=== PATIENT | female | born 1970 | race American Indian/Alaskan Native ===

== ENCOUNTER 2018-01-25 12:25 | Inpatient (IN) | payer MEDICAID, OTHER ==
[2018-01-25] MEDS ORDERED: LEVOPHED DRIP 4 MG/NS 250 ML 4 MG/250 ML BAG IV ONE (12:36)
[2018-01-25] MEDS ORDERED: NACL 0.9% 1000 ML IV ONE (12:59)
[2018-01-25] MEDS ORDERED: ADRENALIN 8 MG in NACL 0.9% 250ML 242 ML IV ONE (13:15)
[2018-01-25 13:36] LABS: Hematocrit 34.7 % (30.3-42.9); Hemoglobin 11.6 gm/dl (10.1-14.3); Mean Corpuscular HGB Conc 33 % (30-34); Mean Corpuscular Hemoglobin 31 pg (28-32); Mean Corpuscular Volume 94 fl (79-97); Platelet Count 173 K/mm3 (140-440); Red Blood Count 3.68 M/mm3 (3.65-5.03); Red Cell Distribution Width 14.6 % (13.2-15.2)
[2018-01-25 13:47] LABS: INR 1.44 (0.87-1.13); Partial Thromboplastin Time 31.4 Sec. (24.2-36.6)
[2018-01-25 13:51] LABS: Alanine Aminotransferase 74 units/L (7-56); Albumin 2.9 g/dL (3.9-5); BUN/Creatinine Ratio 11; Blood Urea Nitrogen 12 mg/dL (7-17); Calcium 8.3 mg/dL (8.4-10.2); Hemolysis Index 25
[2018-01-25] MEDS ORDERED: PROVENTIL IH PRN (14:18)
[2018-01-25] MEDS ORDERED: SODIUM CHLORIDE FLUSH SYRINGE 10 ML IV PRN (14:18)
--- NOTE | 2018-01-25 14:21 | Emergency Department Report ---
ED CPR HPI - General Chief Complaint: Cardiac Arrest/CPR Stated Complaint: CARDIAC Time Seen by Provider: 01/25/18 12:58 Source: patient Mode of arrival: Stretcher Limitations: No Limitations - History of Present Illness Initial Comments: The patient is a 47-year-old Female with past history of hypertension Down syndrome and severe mental developmental delay who was at home and walked to the bathroom and collapsed. There was an approximate 10 minute period where his family was waiting for her to come back from the restroom. Family and patient's caregiver states that earlier today as well as a past several days patient has not had any complaints has been within her baseline. Patient was picked up by paramedics intubated and ACLS was initiated. Patient was given 3 rounds of epinephrine 1 amp of bicarbonate for Alonso PEA MD Complaint: found unresponsive Place: home Shock Advised: No Downtime Before ACLS Arrival (mins): 10 Initial Findings in the Field: unresponsive, no pulse, PEA ROSC in the Field: No Associated Injuries: No Treatments Prior to Arrival: intubation, chest compressions, epinephrine mgs # ( 3), sodium bicarbonate (1) - Related Data Allergies Allergy/AdvReac Type Severity Reaction Status Date / Time No Known Allergies Allergy Verified 01/25/18 13:19 ED Review of Systems ROS: Stated complaint: CARDIAC Other details as noted in HPI Comment: Unobtainable due to pts medical conditions ED Past Medical Hx - Past Medical History Previous Medical History?: Yes Hx Hypertension: Yes Additional medical history: MRDD, down syndrome - Surgical History Past Surgical History?: No - Social History Smoking Status: Never Smoker ED Physical Exam - General Limitations: No Limitations General appearance: obtunded - Head Head exam: Present: atraumatic, normocephalic - Eye Eye exam: Present: other (dilated and fixed) - ENT ENT exam: Present: normal orophraynx - Neck Neck exam: Present: normal inspection - Respiratory Respiratory exam: Present: normal lung sounds bilaterally (with bagging) - Cardiovascular Cardiovascular Exam: Present: other (no spontaneous heart tones) - Extremities Exam Extremities exam: Present: normal inspection ED Course Vital Signs 01/25/18 01/25/18 13:16 14:14 Temperature 95.1 F L Pulse Rate 82 69 Blood Pressure 111/62 Blood Pressure 102/71 [Left] O2 Sat by Pulse 100 100 Oximetry - Central Line Placement Right IJ Consent Obtained: emergent situation Time Out Performed: Yes Patient Placed on Monitor/Pulse Ox: Yes Prep: mask, gown, gloves Central Line Prep: Povidone-Iodine 1% Ultrasound Used for Placement: Yes Central Line Lumen Inserted: triple Bloods Obtained for Lab: Yes Central Line Position: good blood return, all ports aspirated, flus, sutured in place with 2-0 Dressing Applied: Tegaderm Post Procedure X-Ray: tip of catheter in good p Patient Tolerated Procedure: well ED Medical Decision Making - Lab Data Result diagrams: 01/25/18 13:07 01/25/18 13:07 Lab Results 01/25/18 01/25/18 01/25/18 Range/Units 13:07 13:07 13:07 WBC 5.9 (4.5-11.0) K/mm3 RBC 3.68 (3.65-5.03) M/mm3 Hgb 11.6 (10.1-14.3) gm/dl Hct 34.7 (30.3-42.9) % MCV 94 (79-97) fl MCH 31 (28-32) pg MCHC 33 (30-34) % RDW 14.6 (13.2-15.2) % Plt Count 173 (140-440) K/mm3 PT 18.1 H (12.2-14.9) Sec. INR 1.44 H (0.87-1.13) APTT 31.4 (24.2-36.6) Sec. D-Dimer 6524.78 H (0-234) ng/mlDDU POC ABG pH (7.35-7.45) POC ABG pCO2 (35-45) POC ABG pO2 (80-105) POC ABG HCO3 POC ABG Total CO2 POC ABG O2 Sat POC ABG Base Excess FiO2 % Sodium 152 H (137-145) mmol/L Potassium 6.5 H* (3.6-5.0) mmol/L Chloride 104.7 (98-107) mmol/L Carbon Dioxide 19 L (22-30) mmol/L Anion Gap 35 mmol/L BUN 12 (7-17) mg/dL Creatinine 1.1 (0.7-1.2) mg/dL Estimated GFR > 60 ml/min BUN/Creatinine Ratio 11 % Glucose 224 H (65-100) mg/dL Calcium 8.3 L (8.4-10.2) mg/dL Total Bilirubin < 0.20 (0.1-1.2) mg/dL AST 81 H (5-40) units/L ALT 74 H (7-56) units/L Alkaline Phosphatase 55 (35-129) units/L Troponin T (0.00-0.029) ng/mL Total Protein 4.9 L (6.3-8.2) g/dL Albumin 2.9 L (3.9-5) g/dL Albumin/Globulin Ratio 1.5 % 01/25/18 01/25/18 Range/Units 13:07 13:12 WBC (4.5-11.0) K/mm3 RBC (3.65-5.03) M/mm3 Hgb (10.1-14.3) gm/dl Hct (30.3-42.9) % MCV (79-97) fl MCH (28-32) pg MCHC (30-34) % RDW (13.2-15.2) % Plt Count (140-440) K/mm3 PT (12.2-14.9) Sec. INR (0.87-1.13) APTT (24.2-36.6) Sec. D-Dimer (0-234) ng/mlDDU POC ABG pH 7.055 L (7.35-7.45) POC ABG pCO2 66.8 H (35-45) POC ABG pO2 60 L (80-105) POC ABG HCO3 18.7 POC ABG Total CO2 21 POC ABG O2 Sat 77 POC ABG Base Excess -12 FiO2 100 % Sodium (137-145) mmol/L Potassium (3.6-5.0) mmol/L Chloride (98-107) mmol/L Carbon Dioxide (22-30) mmol/L Anion Gap mmol/L BUN (7-17) mg/dL Creatinine (0.7-1.2) mg/dL Estimated GFR ml/min BUN/Creatinine Ratio % Glucose (65-100) mg/dL Calcium (8.4-10.2) mg/dL Total Bilirubin (0.1-1.2) mg/dL AST (5-40) units/L ALT (7-56) units/L Alkaline Phosphatase (35-129) units/L Troponin T < 0.010 (0.00-0.029) ng/mL Total Protein (6.3-8.2) g/dL Albumin (3.9-5) g/dL Albumin/Globulin Ratio % - EKG Data -: EKG Interpreted by Me - EKG Data 01/25/18 14:21 EKG shows a junctional rhythm rate of 87 axis is normal intervals within normal limits there is no ST segment elevations or depressions. Interpretation is 1352 - Medical Decision Making Patient is a 47-year-old [place] female with Down syndrome and developmental delay who collapsed at home. Patient according to family and caregiver wars fine prior to this event. We did have return of spontaneous circulation soon after the patient arrived here in the emergency department. Patient unfortunately did lose her pulse several times more. Please see code sheet for all meds given. Patient will be admitted to the hospitalist service under Dr. Muhammad. Patient's labs or studies were only really remarkable for elevated potassium which was treated with bicarbonate and calcium as well as elevated d-dimer. Patient not yet stable to go to CT scan at this time secondary to be on Levothroid and epinephrine drips. At the time of admission patient did have at least 30 minutes of spontaneous circulation on pressors. Central line is in place. Critical Care Time: Yes (80) Critical care attestation.: If time is entered above; I have spent that time in minutes in the direct care of this critically ill patient, excluding procedure time. ED Disposition Clinical Impression: Cardiac arrest Disposition: OP ADMIT IP TO THIS HOSP Is pt being admited?: Yes Does the pt Need Aspirin: No Condition: Serious Referrals: PRIMARY CARE, [Primary Care Provider] - 3-5 Days Time of Disposition: 14:25
[2018-01-25 14:23] LABS: Band Neutrophils # (Manual) 0.2 K/mm3; Basophils % (Manual) 0 % (0.0-1.8); Eosinophils % (Manual) 0 % (0.0-4.3); Total Cells Counted 100
[2018-01-25 14:24] LABS: Anisocytosis 1+; Macrocytosis 1+; Platelet Estimate Consistent w Auto
--- NOTE | 2018-01-25 14:24 | XRay Report ---
AP CHEST :01/25/18 13:30 CLINICAL: Post intubation. COMPARISON:None. FINDINGS: An endotracheal tube tip is in the right mainstem bronchus and there is complete collapse of the left lung. The heart is shifted into the left chest. A right central venous catheter tip is in the right atrium. The right lung is normally expanded and clear. No pneumothorax. IMPRESSION: Endotracheal tube tip in the right mainstem bronchus and complete collapse of the left lung.
[2018-01-25 14:26] LABS: Bacteria,Urine 2+ /HPF (Negative); Bilirubin,Urine NEG (Negative); Blood,Urine MOD (Negative); Color,Urine Yellow (Yellow); Mucus,Urine FEW /HPF; Protein,Urine >500 mg/dL (Negative); Urobilinogen,Urine < 2.0 mg/dL (<2.0)
[2018-01-25] MEDS: LEVOPHED DRIP 4 MG/NS 250 ML 4 MG/250 ML BAG IV SCH ×3 (14:27→21:08)
[2018-01-25] MEDS ORDERED: LEVOPHED DRIP 4 MG/NS 250 ML 4 MG/250 ML BAG IV SCH (15:00)
[2018-01-25] MEDS ORDERED: NACL 0.9% 1000 ML 1,000 ML ONE (15:23)
--- NOTE | 2018-01-25 18:39 | XRay Report ---
FINAL REPORT EXAM: XR CHEST 1V AP HISTORY: ETT TIP POSITION TECHNIQUE: Single, portable chest x-ray. PRIORS: Earlier on same date. FINDINGS: ET tube tip now projects approximately 2.5 cm above the jewell. Right IJ central venous catheter again noted. Cardiac silhouette stable. Lungs without significant interval change. No apparent pneumothorax. IMPRESSION: 1. ET tube position as reported. 2. Otherwise, stable.
--- NOTE | 2018-01-25 18:42 | XRay Report ---
FINAL REPORT EXAM: XR CHEST 1V AP HISTORY: ET tube pulled back TECHNIQUE: Single, portable chest x-ray. PRIORS: None. FINDINGS: ET tube tip projects approximately 1.5 cm above the jewell. Right IJ central venous catheter tip projects over SVC-RA junction. Cardiac and mediastinal silhouette within normal limits. Lungs hypoinflated and show patchy, partially confluent opacities in the perihilar regions. No apparent pneumothorax. IMPRESSION: 1. ET tube position as reported. 2. Patchy, perihilar opacities or infiltrates.
[2018-01-25] MEDS ORDERED: CALCIUM CHLORIDE IV ONE (19:19)
[2018-01-25] MEDS ORDERED: ADRENALIN ONE (19:19)
[2018-01-25] MEDS ORDERED: SODIUM BICARBONATE IV ONE (19:19)
--- NOTE | 2018-01-25 20:33 | Consultation ---
History of Present Illness Consult date: 01/25/18 Requesting physician: MAJO CAMACHO Reason for consult: other (Acute Hypoxemic Respiratory Failure; S/P Cardiac Arrest) History of present illness: PULMONARY/CCM CONSULT NOTE (Full dictation # [id number]) Please see dictated notes for full details Medications and Allergies Allergies Allergy/AdvReac Type Severity Reaction Status Date / Time No Known Allergies Allergy Verified 01/25/18 13:19 Home Medications Medication Instructions Recorded Confirmed Last Taken Type Donepezil [Aricept] 10 mg PO QDAY 01/25/18 01/25/18 Unknown History Labetalol [Normodyne] 200 mg PO BID 01/25/18 01/25/18 Unknown History Loratadine [Claritin] 10 mg PO DAILY 01/25/18 01/25/18 Unknown History Memantine [Namenda] 10 mg PO BID 01/25/18 01/25/18 Unknown History Omeprazole 20 mg PO DAILY 01/25/18 01/25/18 Unknown History Quetiapine Fumarate [Seroquel] 300 mg PO QHS 01/25/18 01/25/18 Unknown History Sennosides [Senna] 8.6 mg PO DAILY 01/25/18 01/25/18 Unknown History Simvastatin [Zocor TAB] 20 mg PO QHS 01/25/18 01/25/18 Unknown History amLODIPine [Norvasc] 10 mg PO DAILY 01/25/18 01/25/18 Unknown History clonazePAM [Clonazepam] 0.5 mg PO BID 01/25/18 01/25/18 Unknown History Active Meds: Active Medications Albuterol (Proventil) 2.5 mg IH Q3HRT PRN PRN Reason: Shortness Of Breath Clonazepam (Klonopin) 0.5 mg PO BID RUMA Donepezil HCl (Aricept) 10 mg PO QDAY RUMA Epinephrine 8 mg/ Sodium (Chloride) 250 mls @ 3.75 mls/hr IV TITR ONE; Protocol Stop: 01/28/18 07:54 Last Titration: 01/25/18 19:19 Dose: 6 mcg/min, 11.25 mls/hr Norepinephrine (Levophed Drip 4 Mg/Ns 250 Ml) 4 mg in 250 mls @ 7.5 mls/hr IV TITR RUMA; Protocol Last Titration: 01/25/18 18:30 Dose: 18 mcg/min, 67.5 mls/hr Loratadine (Claritin) 10 mg PO DAILY [facility] Memantine (Namenda) 10 mg PO BID RUMA Pantoprazole Sodium (Protonix) 20 mg PO QDAY RUMA Pravastatin Sodium (Pravachol) 40 mg PO QHS RUMA Quetiapine Fumarate (Seroquel) 300 mg PO HS RUMA Senna (Senokot) 8.6 mg PO DAILY RUMA Sodium Chloride (Sodium Chloride Flush Syringe 10 Ml) 10 ml IV BID RUMA Sodium Chloride (Sodium Chloride Flush Syringe 10 Ml) 10 ml IV PRN PRN PRN Reason: LINE FLUSH Physical Examination Vital signs: Vital Signs Pulse BP Pulse Ox 82 111/62 100 01/25/18 13:16 01/25/18 13:16 01/25/18 13:16 Results - Laboratory Findings CBC and BMP: 01/25/18 13:07 01/25/18 13:07 ABG POC ABG pH 7.264 (7.35-7.45) L 01/25/18 14:48 POC ABG pCO2 33.5 (35-45) L 01/25/18 14:48 POC ABG pO2 55 (80-105) L 01/25/18 14:48 POC ABG HCO3 15.1 01/25/18 14:48 POC ABG Total CO2 16 01/25/18 14:48 POC ABG O2 Sat 84 01/25/18 14:48 PT/INR, D-dimer PT 18.1 Sec. (12.2-14.9) H 01/25/18 13:07 INR 1.44 (0.87-1.13) H 01/25/18 13:07 D-Dimer 6524.78 ng/mlDDU (0-234) H 01/25/18 13:07 Abnormal lab findings: Abnormal Labs 01/25/18 01/25/18 01/25/18 13:07 13:07 13:07 Lymphocytes % (Manual) 42.0 H PT 18.1 H INR 1.44 H D-Dimer 6524.78 H POC ABG pH POC ABG pCO2 POC ABG pO2 Sodium 152 H Potassium 6.5 H* Carbon Dioxide 19 L Glucose 224 H Calcium 8.3 L AST 81 H ALT 74 H Total Protein 4.9 L Albumin 2.9 L Urine pH Urine WBC (Auto) 01/25/18 01/25/18 01/25/18 13:12 14:11 14:48 Lymphocytes % (Manual) PT INR D-Dimer POC ABG pH 7.055 L 7.264 L POC ABG pCO2 66.8 H 33.5 L POC ABG pO2 60 L 55 L Sodium Potassium Carbon Dioxide Glucose Calcium AST ALT Total Protein Albumin Urine pH 8.0 H Urine WBC (Auto) 47.0 H
--- NOTE | 2018-01-25 20:36 | History and Physical Report ---
History of Present Illness Date of admission: 01/25/18 14:18 Chief complaint: Unresponsive History of present illness: 47 YO Female with HTN, Downs Syndrome, MR, presents to ED for evaluation. Pt was in her usual state of health and walked to the restroom. After several minutes, and the patient did not return, she was subsequently found down and unresponsive. EMS notified, and upon arrival the patient was found to be in cardiac arrest. Pt treated IAW ACLS protocol. Pt transported to [facility] for further care and evaluation. Pt seen and evaluated in ED. Pt found to be in cardiogenic shock, with Respiratory Failure, and Acidosis. Pt experienced multiple codes in ED with return of perfusing rhythm. Pt placed on pressor support. At time of exam, the patient is unstable for diagnostic imaging. Pt admitted to ICU. Pt has poor prognosis. Pt found to have evidence of Anoxic Brain Injury on exam. Pt has poor prognosis. Pulmonary team consulted in ED. No further history obtainable. Past History Past Medical History: hypertension, other (Downs syndrome) Past Surgical History: No surgical history, Other (reviewed) Social history: single. denies: smoking, alcohol abuse, prescription drug abuse Family history: hypertension Medications and Allergies Allergies Allergy/AdvReac Type Severity Reaction Status Date / Time No Known Allergies Allergy Verified 01/25/18 13:19 Home Medications Medication Instructions Recorded Confirmed Last Taken Type Donepezil [Aricept] 10 mg PO QDAY 01/25/18 01/25/18 Unknown History Labetalol [Normodyne] 200 mg PO BID 01/25/18 01/25/18 Unknown History Loratadine [Claritin] 10 mg PO DAILY 01/25/18 01/25/18 Unknown History Memantine [Namenda] 10 mg PO BID 01/25/18 01/25/18 Unknown History Omeprazole 20 mg PO DAILY 01/25/18 01/25/18 Unknown History Quetiapine Fumarate [Seroquel] 300 mg PO QHS 01/25/18 01/25/18 Unknown History Sennosides [Senna] 8.6 mg PO DAILY 01/25/18 01/25/18 Unknown History Simvastatin [Zocor TAB] 20 mg PO QHS 01/25/18 01/25/18 Unknown History amLODIPine [Norvasc] 10 mg PO DAILY 01/25/18 01/25/18 Unknown History clonazePAM [Clonazepam] 0.5 mg PO BID 01/25/18 01/25/18 Unknown History Active Meds: Active Medications Albuterol (Proventil) 2.5 mg IH Q3HRT PRN PRN Reason: Shortness Of Breath Clonazepam (Klonopin) 0.5 mg PO BID [facility] Donepezil HCl (Aricept) 10 mg PO QDAY [facility] Epinephrine 8 mg/ Sodium (Chloride) 250 mls @ 3.75 mls/hr IV TITR ONE; Protocol Stop: 01/28/18 07:54 Last Titration: 01/25/18 19:19 Dose: 6 mcg/min, 11.25 mls/hr Norepinephrine (Levophed Drip 4 Mg/Ns 250 Ml) 4 mg in 250 mls @ 7.5 mls/hr IV TITR RUMA; Protocol Last Titration: 01/25/18 18:30 Dose: 18 mcg/min, 67.5 mls/hr Loratadine (Claritin) 10 mg PO DAILY RUMA Memantine (Namenda) 10 mg PO BID RUMA Pantoprazole Sodium (Protonix) 20 mg PO QDAY RUMA Pravastatin Sodium (Pravachol) 40 mg PO QHS RUMA Quetiapine Fumarate (Seroquel) 300 mg PO HS RUMA Senna (Senokot) 8.6 mg PO DAILY RUMA Sodium Chloride (Sodium Chloride Flush Syringe 10 Ml) 10 ml IV BID RUMA Sodium Chloride (Sodium Chloride Flush Syringe 10 Ml) 10 ml IV PRN PRN PRN Reason: LINE FLUSH Review of Systems ROS unobtainable: due to mental status Exam - Constitutional Vitals: Temp Pulse Resp BP Pulse Ox 97.3 F L 65 21 95/65 96 01/25/18 20:00 01/25/18 20:16 01/25/18 20:00 01/25/18 20:16 01/25/18 20:16 General appearance: Present: severe distress - EENT Eyes: Present: mydriasis - Neck Neck: Present: supple, normal ROM - Respiratory Respiratory effort: normal Respiratory: bilateral: diminished - Cardiovascular Rhythm: other (hypotensive, bradycardic) Heart Sounds: Present: S1 & S2. Absent: rub, click - Extremities Extremities: pulses symmetrical, No edema Peripheral Pulses: abnormal - Abdominal General gastrointestinal: Present: soft, non-tender, non-distended, normal bowel sounds Female genitourinary: Present: normal - Integumentary Integumentary: Present: clear, dry, decreased turgor - Musculoskeletal Musculoskeletal: generalized weakness - Psychiatric Psychiatric: no appropriate mood/affect, no intact judgment & insight, no memory intact - Neurologic Neurologic: no moves all extremities, no gait normal Results - Labs CBC & Chem 7: 01/26/18 23:26 01/25/18 22:00 Labs: Abnormal lab results 01/25/18 01/25/18 01/25/18 Range/Units 13:07 13:07 13:07 Lymphocytes % (Manual) 42.0 H (13.4-35.0) % PT 18.1 H (12.2-14.9) Sec. INR 1.44 H (0.87-1.13) D-Dimer 6524.78 H (0-234) ng/mlDDU POC ABG pH (7.35-7.45) POC ABG pCO2 (35-45) POC ABG pO2 (80-105) Sodium 152 H (137-145) mmol/L Potassium 6.5 H* (3.6-5.0) mmol/L Carbon Dioxide 19 L (22-30) mmol/L Glucose 224 H (65-100) mg/dL Calcium 8.3 L (8.4-10.2) mg/dL AST 81 H (5-40) units/L ALT 74 H (7-56) units/L Total Protein 4.9 L (6.3-8.2) g/dL Albumin 2.9 L (3.9-5) g/dL Urine pH (5.0-7.0) Urine WBC (Auto) (0.0-6.0) /HPF 01/25/18 01/25/18 01/25/18 Range/Units 13:12 14:11 14:48 Lymphocytes % (Manual) (13.4-35.0) % PT (12.2-14.9) Sec. INR (0.87-1.13) D-Dimer (0-234) ng/mlDDU POC ABG pH 7.055 L 7.264 L (7.35-7.45) POC ABG pCO2 66.8 H 33.5 L (35-45) POC ABG pO2 60 L 55 L (80-105) Sodium (137-145) mmol/L Potassium (3.6-5.0) mmol/L Carbon Dioxide (22-30) mmol/L Glucose (65-100) mg/dL Calcium (8.4-10.2) mg/dL AST (5-40) units/L ALT (7-56) units/L Total Protein (6.3-8.2) g/dL Albumin (3.9-5) g/dL Urine pH 8.0 H (5.0-7.0) Urine WBC (Auto) 47.0 H (0.0-6.0) /HPF Assessment and Plan - Patient Problems (1) Respiratory failure Current Visit: Yes Status: Acute Qualifiers: Chronicity: acute Respiratory failure complication: hypoxia Qualified Code(s): J96.01 - Acute respiratory failure with hypoxia Plan to address problem: Pt intubated, placed on vent support. Wean vent as tolerated. Pulmonary consulted, daily SBT, sedation holiday The high probability of a clinically significant, sudden or life threatening deterioration of the [cardiac, renal, neuro] system(s) required my full and direct attention, intervention and personal management. The aggregate critical care time was [65] minutes. This time is in addition to time spent performing reported procedures but includes the following: [x] Data Review and interpretation [x] Patient assessment and monitoring of vital signs [x] Documentation [x] Medication orders and management (2) Acidosis Current Visit: Yes Status: Acute Plan to address problem: IVF resuscitation therapy, repeat bmp (3) Cardiogenic shock Current Visit: Yes Status: Acute Plan to address problem: IV pressor support, ivf resuscitation therapy, admit to ICU (4) Encephalopathy Current Visit: Yes Status: Acute Plan to address problem: CT Head when medically stable, neuro checks, seizure precautions,eeg when medically stable if no improvement in neuro status (5) Anoxic brain damage Current Visit: Yes Status: Acute Plan to address problem: CT head, neuro checks, seizure precautions. (6) Cardiac arrest Current Visit: Yes Status: Acute Plan to address problem: ACLS protocol, IV pressor supoprt, Pt is full code. (7) DVT prophylaxis Current Visit: Yes Status: Acute Plan to address problem: scd to ble while in bed
[2018-01-25] MEDS ORDERED: PROTONIX IV STA (20:51)
[2018-01-25] MEDS ORDERED: PROTONIX 80 MG in NACL 0.9% 100 ML IV SCH (21:00)
[2018-01-25] MEDS ORDERED: SODIUM BICARBONATE 150 MEQ in D5W 1,000 ML IV SCH (21:00)
[2018-01-25] MEDS ORDERED: PRAVACHOL PO SCH (22:00)
[2018-01-25] MEDS ORDERED: SODIUM CHLORIDE FLUSH SYRINGE 10 ML IV SCH (22:00)
[2018-01-25] MEDS ORDERED: NON-FORMULARY (Simvastatin 20 MG) PO SCH (22:00)
[2018-01-25] MEDS ORDERED: NAMENDA PO SCH (22:00)
[2018-01-25 22:25] LABS: INR 1.5 (0.87-1.13)
[2018-01-25 22:42] LABS: C-Reactive Protein 1.9 mg/dL (0.00-1.30); Calcium 8.9 mg/dL (8.4-10.2)
[2018-01-25 23:12] LABS: Hematocrit 50.5 % (30.3-42.9); Hemoglobin 16.7 gm/dl (10.1-14.3); Mean Corpuscular HGB Conc 33 % (30-34); Mean Corpuscular Hemoglobin 31 pg (28-32); Mean Corpuscular Volume 93 fl (79-97); Platelet Count 183 K/mm3 (140-440); Red Blood Count 5.42 M/mm3 (3.65-5.03); Red Cell Distribution Width 14.4 % (13.2-15.2)
[2018-01-26 00:55] LABS: Hematocrit 50.1 % (30.3-42.9); Hemoglobin 16.4 gm/dl (10.1-14.3)
[2018-01-26] MEDS: LEVOPHED DRIP 4 MG/NS 250 ML 4 MG/250 ML BAG IV SCH ×4 (01:05→06:43)
[2018-01-26 03:56] LABS: Band Neutrophils # (Manual) 1.8 K/mm3; Basophils % (Manual) 0 % (0.0-1.8); Eosinophils % (Manual) 0 % (0.0-4.3); Total Cells Counted 100
[2018-01-26 03:57] LABS: Anisocytosis 1+
[2018-01-26 03:58] LABS: Platelet Estimate Cons
[2018-01-26 05:50] LABS: Hematocrit 47.1 % (30.3-42.9); Hemoglobin 15.4 gm/dl (10.1-14.3)
[2018-01-26 06:07] LABS: Albumin 2.5 g/dL (3.9-5); Calcium 7.7 mg/dL (8.4-10.2)
[2018-01-26] MEDS ORDERED: D50W (25GM) Syringe IV ONE (09:29)
--- NOTE | 2018-01-26 09:35 | Event Note ---
Date: 01/26/18 Responded to a CODE BLUE, cardiac arrest. Patient found in the ICU, intubated with central line, with no pulses for uncertain duration of time. ICU nursing staff has already initiated standard ACLS interventions. Patient received aggressive chest compressions, was found to be hypoglycemic with a fingerstick of 60, given 2 rounds of D50, as well as standard ACLS medications. Pulses were obtained after approximately 10 minutes of CPR. Discussed with Hospital physician, Dr. Henry, who will have one of her colleagues come by and assess the patient post resuscitation. I will defer to the inpatient ICU team for postresuscitation management. Vital Signs 01/25/18 01/25/18 01/25/18 13:16 14:14 14:46 Temperature 95.1 F L Pulse Rate 82 69 Pulse Rate [ Anterior Bilateral Throughout] Respiratory Rate Respiratory Rate [Anterior Bilateral Throughout] Blood Pressure 111/62 102/71 Blood Pressure 102/71 [Left] Blood Pressure [Right] O2 Sat by Pulse 100 100 84 Oximetry 01/25/18 01/25/18 01/25/18 15:23 15:52 16:00 Temperature Pulse Rate 66 60 60 Pulse Rate [ Anterior Bilateral Throughout] Respiratory 21 20 Rate Respiratory Rate [Anterior Bilateral Throughout] Blood Pressure 98/63 Blood Pressure 92/58 [Left] Blood Pressure [Right] O2 Sat by Pulse 100 89 Oximetry 01/25/18 01/25/18 01/25/18 16:10 16:20 16:30 Temperature Pulse Rate 59 L 59 L 58 L Pulse Rate [ Anterior Bilateral Throughout] Respiratory 20 21 20 Rate Respiratory Rate [Anterior Bilateral Throughout] Blood Pressure 98/63 96/63 84/57 Blood Pressure [Left] Blood Pressure [Right] O2 Sat by Pulse 89 88 Oximetry 01/25/18 01/25/18 01/25/18 16:40 16:50 17:00 Temperature Pulse Rate 58 L 49 L 56 L Pulse Rate [ Anterior Bilateral Throughout] Respiratory 20 20 20 Rate Respiratory Rate [Anterior Bilateral Throughout] Blood Pressure 84/57 85/55 84/55 Blood Pressure [Left] Blood Pressure [Right] O2 Sat by Pulse 81 L 89 90 Oximetry 01/25/18 01/25/18 01/25/18 17:10 17:20 17:22 Temperature Pulse Rate 58 L 52 L 53 L Pulse Rate [ Anterior Bilateral Throughout] Respiratory 16 20 Rate Respiratory Rate [Anterior Bilateral Throughout] Blood Pressure 84/55 101/63 101/63 Blood Pressure [Left] Blood Pressure [Right] O2 Sat by Pulse 76 L 100 100 Oximetry 01/25/18 01/25/18 01/25/18 17:30 17:40 17:50 Temperature Pulse Rate 50 L 53 L 55 L Pulse Rate [ Anterior Bilateral Throughout] Respiratory 19 20 21 Rate Respiratory Rate [Anterior Bilateral Throughout] Blood Pressure 98/72 98/72 99/62 Blood Pressure [Left] Blood Pressure [Right] O2 Sat by Pulse 97 99 99 Oximetry 01/25/18 01/25/18 01/25/18 18:00 18:10 18:20 Temperature Pulse Rate 54 L 55 L 59 L Pulse Rate [ Anterior Bilateral Throughout] Respiratory 20 20 21 Rate Respiratory Rate [Anterior Bilateral Throughout] Blood Pressure 102/60 102/60 98/61 Blood Pressure [Left] Blood Pressure [Right] O2 Sat by Pulse 99 98 99 Oximetry 01/25/18 01/25/18 01/25/18 18:30 18:40 18:50 Temperature Pulse Rate 56 L 54 L 58 L Pulse Rate [ Anterior Bilateral Throughout] Respiratory 21 20 21 Rate Respiratory Rate [Anterior Bilateral Throughout] Blood Pressure 100/66 99/62 99/60 Blood Pressure [Left] Blood Pressure [Right] O2 Sat by Pulse 99 99 Oximetry 01/25/18 01/25/18 01/25/18 19:00 19:10 19:20 Temperature Pulse Rate 58 L 61 62 Pulse Rate [ Anterior Bilateral Throughout] Respiratory 22 20 22 Rate Respiratory Rate [Anterior Bilateral Throughout] Blood Pressure 100/51 100/51 108/59 Blood Pressure [Left] Blood Pressure [Right] O2 Sat by Pulse 97 98 98 Oximetry 01/25/18 01/25/18 01/25/18 19:30 19:40 19:50 Temperature Pulse Rate 64 63 65 Pulse Rate [ Anterior Bilateral Throughout] Respiratory 21 23 22 Rate Respiratory Rate [Anterior Bilateral Throughout] Blood Pressure 102/63 102/63 89/59 Blood Pressure [Left] Blood Pressure [Right] O2 Sat by Pulse 100 98 97 Oximetry 01/25/18 01/25/18 01/25/18 19:54 20:00 20:02 Temperature 97.3 F L Pulse Rate 65 67 66 Pulse Rate [ Anterior Bilateral Throughout] Respiratory 21 21 22 Rate Respiratory Rate [Anterior Bilateral Throughout] Blood Pressure 89/59 85/61 85/61 Blood Pressure [Left] Blood Pressure [Right] O2 Sat by Pulse 97 97 98 Oximetry 01/25/18 01/25/18 01/25/18 20:15 20:16 20:30 Temperature Pulse Rate 67 65 65 Pulse Rate [ Anterior Bilateral Throughout] Respiratory 22 22 Rate Respiratory Rate [Anterior Bilateral Throughout] Blood Pressure 95/65 95/65 96/59 Blood Pressure [Left] Blood Pressure [Right] O2 Sat by Pulse 95 96 95 Oximetry 01/25/18 01/25/18 01/25/18 20:45 21:00 21:11 Temperature Pulse Rate 68 69 Pulse Rate [ 74 75 Anterior Bilateral Throughout] Respiratory 20 22 Rate Respiratory 24 24 Rate [Anterior Bilateral Throughout] Blood Pressure 98/61 104/57 Blood Pressure [Left] Blood Pressure [Right] O2 Sat by Pulse 92 95 Oximetry 01/25/18 01/25/18 01/25/18 21:15 21:30 21:45 Temperature Pulse Rate 76 74 75 Pulse Rate [ Anterior Bilateral Throughout] Respiratory 14 14 13 Rate Respiratory Rate [Anterior Bilateral Throughout] Blood Pressure 113/66 118/73 101/62 Blood Pressure [Left] Blood Pressure [Right] O2 Sat by Pulse 94 100 99 Oximetry 01/25/18 01/25/18 01/25/18 22:00 22:15 22:30 Temperature Pulse Rate 77 78 79 Pulse Rate [ Anterior Bilateral Throughout] Respiratory 13 13 14 Rate Respiratory Rate [Anterior Bilateral Throughout] Blood Pressure 110/69 101/61 118/65 Blood Pressure [Left] Blood Pressure [Right] O2 Sat by Pulse 100 99 Oximetry 01/25/18 01/25/18 01/25/18 22:45 23:00 23:15 Temperature Pulse Rate 80 81 82 Pulse Rate [ Anterior Bilateral Throughout] Respiratory 13 12 18 Rate Respiratory Rate [Anterior Bilateral Throughout] Blood Pressure 117/68 117/68 91/59 Blood Pressure [Left] Blood Pressure [Right] O2 Sat by Pulse 100 98 Oximetry 01/25/18 01/25/18 01/25/18 23:30 23:45 23:46 Temperature 97.8 F Pulse Rate 83 85 Pulse Rate [ Anterior Bilateral Throughout] Respiratory 16 14 Rate Respiratory Rate [Anterior Bilateral Throughout] Blood Pressure 101/47 85/63 Blood Pressure [Left] Blood Pressure [Right] O2 Sat by Pulse 98 98 Oximetry 01/25/18 01/26/18 01/26/18 23:53 00:00 00:16 Temperature Pulse Rate 86 85 86 Pulse Rate [ Anterior Bilateral Throughout] Respiratory 17 26 H Rate Respiratory Rate [Anterior Bilateral Throughout] Blood Pressure 85/63 85/63 86/41 Blood Pressure [Left] Blood Pressure [Right] O2 Sat by Pulse 98 98 98 Oximetry 01/26/18 01/26/18 01/26/18 00:30 00:46 01:00 Temperature Pulse Rate 87 87 88 Pulse Rate [ Anterior Bilateral Throughout] Respiratory 26 H 25 H 25 H Rate Respiratory Rate [Anterior Bilateral Throughout] Blood Pressure 86/41 64/43 126/103 Blood Pressure [Left] Blood Pressure [Right] O2 Sat by Pulse 98 98 97 Oximetry 01/26/18 01/26/18 01/26/18 01:03 01:16 01:22 Temperature Pulse Rate 88 88 Pulse Rate [ Anterior Bilateral Throughout] Respiratory 26 H Rate Respiratory Rate [Anterior Bilateral Throughout] Blood Pressure Blood Pressure [Left] Blood Pressure 61/35 [Right] O2 Sat by Pulse 96 Oximetry 01/26/18 01/26/18 01/26/18 01:30 01:32 01:40 Temperature Pulse Rate 87 88 Pulse Rate [ Anterior Bilateral Throughout] Respiratory 26 H 26 H Rate Respiratory Rate [Anterior Bilateral Throughout] Blood Pressure 136/113 Blood Pressure [Left] Blood Pressure 136/113 [Right] O2 Sat by Pulse 97 95 Oximetry 01/26/18 01/26/18 01/26/18 01:46 01:50 01:53 Temperature Pulse Rate 89 89 89 Pulse Rate [ Anterior Bilateral Throughout] Respiratory 26 H 26 H Rate Respiratory Rate [Anterior Bilateral Throughout] Blood Pressure Blood Pressure 82/59 [Left] Blood Pressure [Right] O2 Sat by Pulse 98 96 Oximetry 01/26/18 01/26/18 01/26/18 01:56 02:00 02:06 Temperature Pulse Rate 90 91 H 88 Pulse Rate [ Anterior Bilateral Throughout] Respiratory 26 H 26 H 26 H Rate Respiratory Rate [Anterior Bilateral Throughout] Blood Pressure 82/59 45/29 Blood Pressure [Left] Blood Pressure [Right] O2 Sat by Pulse 97 96 99 Oximetry 01/26/18 01/26/18 01/26/18 02:10 02:16 02:20 Temperature Pulse Rate 89 93 H 91 H Pulse Rate [ Anterior Bilateral Throughout] Respiratory 26 H 26 H 24 Rate Respiratory Rate [Anterior Bilateral Throughout] Blood Pressure 45/29 136/113 68/23 Blood Pressure [Left] Blood Pressure [Right] O2 Sat by Pulse 99 99 99 Oximetry 01/26/18 01/26/18 01/26/18 02:30 02:40 02:50 Temperature Pulse Rate 93 H 93 H 93 H Pulse Rate [ Anterior Bilateral Throughout] Respiratory 26 H 25 H 26 H Rate Respiratory Rate [Anterior Bilateral Throughout] Blood Pressure 68/23 77/52 81/64 Blood Pressure [Left] Blood Pressure [Right] O2 Sat by Pulse 97 99 98 Oximetry 01/26/18 01/26/18 01/26/18 03:00 03:10 03:20 Temperature Pulse Rate 93 H 95 H 97 H Pulse Rate [ Anterior Bilateral Throughout] Respiratory 26 H 25 H 26 H Rate Respiratory Rate [Anterior Bilateral Throughout] Blood Pressure 77/36 92/61 Blood Pressure [Left] Blood Pressure [Right] O2 Sat by Pulse 99 99 99 Oximetry 01/26/18 01/26/18 01/26/18 03:25 03:26 03:30 Temperature 98.9 F Pulse Rate 98 H 96 H Pulse Rate [ Anterior Bilateral Throughout] Respiratory 26 H 26 H Rate Respiratory Rate [Anterior Bilateral Throughout] Blood Pressure 101/57 Blood Pressure [Left] Blood Pressure [Right] O2 Sat by Pulse 98 98 Oximetry 01/26/18 01/26/18 01/26/18 03:36 03:40 03:46 Temperature Pulse Rate 97 H 96 H 98 H Pulse Rate [ Anterior Bilateral Throughout] Respiratory 25 H 25 H 26 H Rate Respiratory Rate [Anterior Bilateral Throughout] Blood Pressure 83/58 Blood Pressure [Left] Blood Pressure [Right] O2 Sat by Pulse 99 99 97 Oximetry 01/26/18 01/26/18 01/26/18 03:50 03:56 04:00 Temperature Pulse Rate 97 H 97 H 97 H Pulse Rate [ Anterior Bilateral Throughout] Respiratory 26 H 25 H 25 H Rate Respiratory Rate [Anterior Bilateral Throughout] Blood Pressure 95/59 Blood Pressure [Left] Blood Pressure [Right] O2 Sat by Pulse 99 99 98 Oximetry 01/26/18 01/26/18 01/26/18 04:06 04:10 04:15 Temperature Pulse Rate 98 H 97 H 98 H Pulse Rate [ Anterior Bilateral Throughout] Respiratory 25 H 25 H 27 H Rate Respiratory Rate [Anterior Bilateral Throughout] Blood Pressure 103/45 Blood Pressure [Left] Blood Pressure [Right] O2 Sat by Pulse 99 99 100 Oximetry 01/26/18 01/26/18 01/26/18 04:20 04:26 04:30 Temperature Pulse Rate 99 H 100 H 100 H Pulse Rate [ Anterior Bilateral Throughout] Respiratory 26 H 26 H 25 H Rate Respiratory Rate [Anterior Bilateral Throughout] Blood Pressure 83/58 89/58 Blood Pressure [Left] Blood Pressure [Right] O2 Sat by Pulse 100 99 99 Oximetry 01/26/18 01/26/18 01/26/18 04:36 04:40 04:46 Temperature Pulse Rate 101 H 101 H 101 H Pulse Rate [ Anterior Bilateral Throughout] Respiratory 26 H 25 H 26 H Rate Respiratory Rate [Anterior Bilateral Throughout] Blood Pressure 105/43 Blood Pressure [Left] Blood Pressure [Right] O2 Sat by Pulse 99 96 100 Oximetry 01/26/18 01/26/18 01/26/18 04:50 04:56 04:57 Temperature Pulse Rate 101 H 99 H 103 H Pulse Rate [ Anterior Bilateral Throughout] Respiratory 25 H 24 Rate Respiratory Rate [Anterior Bilateral Throughout] Blood Pressure 105/43 Blood Pressure [Left] Blood Pressure [Right] O2 Sat by Pulse 100 98 99 Oximetry 01/26/18 01/26/18 01/26/18 05:00 05:06 05:10 Temperature Pulse Rate 104 H 103 H 104 H Pulse Rate [ Anterior Bilateral Throughout] Respiratory 26 H 25 H 26 H Rate Respiratory Rate [Anterior Bilateral Throughout] Blood Pressure 97/53 Blood Pressure [Left] Blood Pressure [Right] O2 Sat by Pulse 100 100 98 Oximetry 01/26/18 01/26/18 01/26/18 05:15 05:20 05:26 Temperature Pulse Rate 104 H 104 H 103 H Pulse Rate [ Anterior Bilateral Throughout] Respiratory 26 H 25 H 13 Rate Respiratory Rate [Anterior Bilateral Throughout] Blood Pressure 98/55 Blood Pressure [Left] Blood Pressure [Right] O2 Sat by Pulse 99 100 Oximetry 01/26/18 01/26/18 01/26/18 05:30 05:36 05:40 Temperature Pulse Rate 104 H 103 H 106 H Pulse Rate [ Anterior Bilateral Throughout] Respiratory 23 23 26 H Rate Respiratory Rate [Anterior Bilateral Throughout] Blood Pressure 145/95 Blood Pressure [Left] Blood Pressure [Right] O2 Sat by Pulse 100 Oximetry 01/26/18 01/26/18 01/26/18 05:46 05:50 05:56 Temperature Pulse Rate 107 H 107 H 100 H Pulse Rate [ Anterior Bilateral Throughout] Respiratory 25 H 26 H 24 Rate Respiratory Rate [Anterior Bilateral Throughout] Blood Pressure 145/95 89/46 89/46 Blood Pressure [Left] Blood Pressure [Right] O2 Sat by Pulse 98 100 99 Oximetry 01/26/18 01/26/18 01/26/18 06:00 06:06 06:10 Temperature Pulse Rate 106 H 108 H 108 H Pulse Rate [ Anterior Bilateral Throughout] Respiratory 26 H 25 H 25 H Rate Respiratory Rate [Anterior Bilateral Throughout] Blood Pressure 96/62 96/62 Blood Pressure [Left] Blood Pressure [Right] O2 Sat by Pulse 99 100 100 Oximetry 01/26/18 01/26/18 01/26/18 06:15 06:20 06:26 Temperature Pulse Rate 108 H 107 H 106 H Pulse Rate [ Anterior Bilateral Throughout] Respiratory 26 H 26 H 26 H Rate Respiratory Rate [Anterior Bilateral Throughout] Blood Pressure 87/55 89/46 89/46 Blood Pressure [Left] Blood Pressure [Right] O2 Sat by Pulse 96 100 100 Oximetry 01/26/18 01/26/18 01/26/18 06:30 06:36 06:40 Temperature Pulse Rate 107 H 108 H 109 H Pulse Rate [ Anterior Bilateral Throughout] Respiratory 27 H 26 H 26 H Rate Respiratory Rate [Anterior Bilateral Throughout] Blood Pressure 92/62 92/62 92/62 Blood Pressure [Left] Blood Pressure [Right] O2 Sat by Pulse 98 99 100 Oximetry 01/26/18 01/26/18 01/26/18 06:45 06:50 06:56 Temperature Pulse Rate 108 H 108 H 109 H Pulse Rate [ Anterior Bilateral Throughout] Respiratory 24 26 H 24 Rate Respiratory Rate [Anterior Bilateral Throughout] Blood Pressure 108/47 108/47 108/47 Blood Pressure [Left] Blood Pressure [Right] O2 Sat by Pulse 97 100 100 Oximetry 01/26/18 01/26/18 01/26/18 07:00 07:06 07:10 Temperature Pulse Rate 108 H 109 H 109 H Pulse Rate [ Anterior Bilateral Throughout] Respiratory 25 H 25 H 24 Rate Respiratory Rate [Anterior Bilateral Throughout] Blood Pressure 87/56 87/56 87/56 Blood Pressure [Left] Blood Pressure [Right] O2 Sat by Pulse 96 100 99 Oximetry 01/26/18 01/26/18 01/26/18 07:15 07:20 07:26 Temperature Pulse Rate 109 H 109 H 111 H Pulse Rate [ Anterior Bilateral Throughout] Respiratory 24 25 H 25 H Rate Respiratory Rate [Anterior Bilateral Throughout] Blood Pressure 87/54 87/54 87/54 Blood Pressure [Left] Blood Pressure [Right] O2 Sat by Pulse 97 99 99 Oximetry 01/26/18 01/26/18 01/26/18 07:30 07:36 07:40 Temperature Pulse Rate 111 H 112 H 112 H Pulse Rate [ Anterior Bilateral Throughout] Respiratory 24 25 H 26 H Rate Respiratory Rate [Anterior Bilateral Throughout] Blood Pressure 97/52 97/52 97/52 Blood Pressure [Left] Blood Pressure [Right] O2 Sat by Pulse 97 99 99 Oximetry 01/26/18 01/26/18 01/26/18 07:45 07:50 07:54 Temperature Pulse Rate 112 H 113 H 111 H Pulse Rate [ Anterior Bilateral Throughout] Respiratory 24 24 Rate Respiratory Rate [Anterior Bilateral Throughout] Blood Pressure 97/49 97/49 97/49 Blood Pressure [Left] Blood Pressure [Right] O2 Sat by Pulse 99 100 Oximetry 01/26/18 01/26/18 01/26/18 07:56 08:00 08:06 Temperature Pulse Rate 112 H 116 H 112 H Pulse Rate [ Anterior Bilateral Throughout] Respiratory 24 24 25 H Rate Respiratory Rate [Anterior Bilateral Throughout] Blood Pressure 97/49 103/53 103/53 Blood Pressure [Left] Blood Pressure [Right] O2 Sat by Pulse 100 99 100 Oximetry 01/26/18 01/26/18 01/26/18 08:10 08:15 08:20 Temperature Pulse Rate 113 H 112 H 114 H Pulse Rate [ Anterior Bilateral Throughout] Respiratory 23 25 H 24 Rate Respiratory Rate [Anterior Bilateral Throughout] Blood Pressure 103/53 93/66 93/66 Blood Pressure [Left] Blood Pressure [Right] O2 Sat by Pulse 100 96 100 Oximetry 01/26/18 01/26/18 01/26/18 08:26 08:30 08:36 Temperature Pulse Rate 117 H 114 H 114 H Pulse Rate [ Anterior Bilateral Throughout] Respiratory 24 24 25 H Rate Respiratory Rate [Anterior Bilateral Throughout] Blood Pressure 97/49 97/49 80/56 Blood Pressure [Left] Blood Pressure [Right] O2 Sat by Pulse 98 100 99 Oximetry 01/26/18 01/26/18 01/26/18 08:40 08:45 08:50 Temperature Pulse Rate 117 H 117 H 114 H Pulse Rate [ Anterior Bilateral Throughout] Respiratory 23 24 24 Rate Respiratory Rate [Anterior Bilateral Throughout] Blood Pressure 80/56 93/57 93/57 Blood Pressure [Left] Blood Pressure [Right] O2 Sat by Pulse 98 98 100 Oximetry 01/26/18 01/26/18 01/26/18 08:56 09:00 09:06 Temperature Pulse Rate 112 H 109 H 84 Pulse Rate [ Anterior Bilateral Throughout] Respiratory 23 24 24 Rate Respiratory Rate [Anterior Bilateral Throughout] Blood Pressure 80/56 80/56 80/56 Blood Pressure [Left] Blood Pressure [Right] O2 Sat by Pulse 100 97 Oximetry Labs 01/25/18 01/25/18 01/25/18 13:07 13:07 13:07 WBC 5.9 RBC 3.68 Hgb 11.6 Hct 34.7 MCV 94 MCH 31 MCHC 33 RDW 14.6 Plt Count 173 Add Manual Diff Complete Total Counted 100 Seg Neuts % (Manual) 50.0 Band Neutrophils % 4.0 Lymphocytes % (Manual) 42.0 H Reactive Lymphs % (Man) 0 Monocytes % (Manual) 2.0 Eosinophils % (Manual) 0 Basophils % (Manual) 0 Metamyelocytes % 2.0 Myelocytes % 0 Promyelocytes % 0 Blast Cells % 0 Nucleated RBC % Not Reportable Seg Neutrophils # Man 3.0 Band Neutrophils # 0.2 Lymphocytes # (Manual) 2.5 Abs React Lymphs (Man) 0.0 Monocytes # (Manual) 0.1 Eosinophils # (Manual) 0.0 Basophils # (Manual) 0.0 Metamyelocytes # 0.1 Myelocytes # 0.0 Promyelocytes # 0.0 Blast Cells # 0.0 WBC Morphology Not Reportable Hypersegmented Neuts Not Reportable Hyposegmented Neuts Not Reportable Hypogranular Neuts Not Reportable Smudge Cells Not Reportable Toxic Granulation Not Reportable Toxic Vacuolation Not Reportable Dohle Bodies Not Reportable Pelger-Huet Anomaly Not Reportable Dimitri Rods Not Reportable Platelet Estimate Consistent w auto Clumped Platelets Not Reportable Plt Clumps, EDTA Not Reportable Large Platelets Not Reportable Giant Platelets Not Reportable Platelet Satelliting Not Reportable Plt Morphology Comment Not Reportable RBC Morphology Not Reportable Dimorphic RBCs Not Reportable Polychromasia Not Reportable Hypochromasia Not Reportable Poikilocytosis Not Reportable Anisocytosis 1+ Microcytosis Not Reportable Macrocytosis 1+ Spherocytes Not Reportable Pappenheimer Bodies Not Reportable Sickle Cells Not Reportable Target Cells Not Reportable Tear Drop Cells Not Reportable Ovalocytes Not Reportable Helmet Cells Not Reportable Min-[place] Bodies Not Reportable [place] Rings Not Reportable [place] Cells Not Reportable Bite Cells Not Reportable Crenated Cell Not Reportable Elliptocytes Not Reportable Acanthocytes (Spur) Not Reportable Rouleaux Not Reportable Hemoglobin C Crystals Not Reportable Schistocytes Not Reportable Malaria parasites Not Reportable Leroy Bodies Not Reportable Hem Pathologist Commnt No PT 18.1 H INR 1.44 H APTT 31.4 D-Dimer 6524.78 H POC ABG pH POC ABG pCO2 POC ABG pO2 POC ABG HCO3 POC ABG Total CO2 POC ABG O2 Sat POC ABG Base Excess FiO2 Sodium 152 H Potassium 6.5 H* Chloride 104.7 Carbon Dioxide 19 L Anion Gap 35 BUN 12 Creatinine 1.1 Estimated GFR > 60 BUN/Creatinine Ratio 11 Glucose 224 H Lactic Acid Calcium 8.3 L Magnesium Total Bilirubin < 0.20 AST 81 H ALT 74 H Alkaline Phosphatase 55 Troponin T C-Reactive Protein Total Protein 4.9 L Albumin 2.9 L Albumin/Globulin Ratio 1.5 Urine Color Urine Turbidity Urine pH Ur Specific [place] Urine Protein Urine Glucose (UA) Urine Ketones Urine Blood Urine Nitrite Urine Bilirubin Urine Urobilinogen Ur Leukocyte Esterase Urine WBC (Auto) Urine RBC (Auto) U Epithel Cells (Auto) Urine Bacteria (Auto) Urine Mucus Urine Yeast (Budding) 01/25/18 01/25/18 01/25/18 13:07 13:12 14:11 WBC RBC Hgb Hct MCV MCH MCHC RDW Plt Count Add Manual Diff Total Counted Seg Neuts % (Manual) Band Neutrophils % Lymphocytes % (Manual) Reactive Lymphs % (Man) Monocytes % (Manual) Eosinophils % (Manual) Basophils % (Manual) Metamyelocytes % Myelocytes % Promyelocytes % Blast Cells % Nucleated RBC % Seg Neutrophils # Man Band Neutrophils # Lymphocytes # (Manual) Abs React Lymphs (Man) Monocytes # (Manual) Eosinophils # (Manual) Basophils # (Manual) Metamyelocytes # Myelocytes # Promyelocytes # Blast Cells # WBC Morphology Hypersegmented Neuts Hyposegmented Neuts Hypogranular Neuts Smudge Cells Toxic Granulation Toxic Vacuolation Dohle Bodies Pelger-Huet Anomaly Dimitri Rods Platelet Estimate Clumped Platelets Plt Clumps, EDTA Large Platelets Giant Platelets Platelet Satelliting Plt Morphology Comment RBC Morphology Dimorphic RBCs Polychromasia Hypochromasia Poikilocytosis Anisocytosis Microcytosis Macrocytosis Spherocytes Pappenheimer Bodies Sickle Cells Target Cells Tear Drop Cells Ovalocytes Helmet Cells Min-[place] Bodies [place] Rings Kina Cells Bite Cells Crenated Cell Elliptocytes Acanthocytes (Spur) Rouleaux Hemoglobin C Crystals Schistocytes Malaria parasites Leroy Bodies Hem Pathologist Commnt PT INR APTT D-Dimer POC ABG pH 7.055 L POC ABG pCO2 66.8 H POC ABG pO2 60 L POC ABG HCO3 18.7 POC ABG Total CO2 21 POC ABG O2 Sat 77 POC ABG Base Excess -12 FiO2 100 Sodium Potassium Chloride Carbon Dioxide Anion Gap BUN Creatinine Estimated GFR BUN/Creatinine Ratio Glucose Lactic Acid Calcium Magnesium Total Bilirubin AST ALT Alkaline Phosphatase Troponin T < 0.010 C-Reactive Protein Total Protein Albumin Albumin/Globulin Ratio Urine Color Yellow Urine Turbidity Cloudy Urine pH 8.0 H Ur Specific [place] 1.007 Urine Protein >500 Urine Glucose (UA) 150 Urine Ketones Neg Urine Blood Mod Urine Nitrite Neg Urine Bilirubin Neg Urine Urobilinogen < 2.0 Ur Leukocyte Esterase Neg Urine WBC (Auto) 47.0 H Urine RBC (Auto) 66.0 U Epithel Cells (Auto) 13.0 Urine Bacteria (Auto) 2+ Urine Mucus Few Urine Yeast (Budding) Few 01/25/18 01/25/18 01/25/18 14:48 20:53 22:00 WBC RBC Hgb Hct MCV MCH MCHC RDW Plt Count Add Manual Diff Total Counted Seg Neuts % (Manual) Band Neutrophils % Lymphocytes % (Manual) Reactive Lymphs % (Man) Monocytes % (Manual) Eosinophils % (Manual) Basophils % (Manual) Metamyelocytes % Myelocytes % Promyelocytes % Blast Cells % Nucleated RBC % Seg Neutrophils # Man Band Neutrophils # Lymphocytes # (Manual) Abs React Lymphs (Man) Monocytes # (Manual) Eosinophils # (Manual) Basophils # (Manual) Metamyelocytes # Myelocytes # Promyelocytes # Blast Cells # WBC Morphology Hypersegmented Neuts Hyposegmented Neuts Hypogranular Neuts Smudge Cells Toxic Granulation Toxic Vacuolation Dohle Bodies Pelger-Huet Anomaly Dimitri Rods Platelet Estimate Clumped Platelets Plt Clumps, EDTA Large Platelets Giant Platelets Platelet Satelliting Plt Morphology Comment RBC Morphology Dimorphic RBCs Polychromasia Hypochromasia Poikilocytosis Anisocytosis Microcytosis Macrocytosis Spherocytes Pappenheimer Bodies Sickle Cells Target Cells Tear Drop Cells Ovalocytes Helmet Cells Min-[place] Bodies [place] Rings [place] Cells Bite Cells Crenated Cell Elliptocytes Acanthocytes (Spur) Rouleaux Hemoglobin C Crystals Schistocytes Malaria parasites Leroy Bodies Hem Pathologist Commnt PT 18.7 H INR 1.50 H APTT D-Dimer POC ABG pH 7.264 L 7.251 L POC ABG pCO2 33.5 L 30.1 L POC ABG pO2 55 L 98 POC ABG HCO3 15.1 13.2 POC ABG Total CO2 16 14 POC ABG O2 Sat 84 97 POC ABG Base Excess -12 -14 FiO2 100 70 Sodium Potassium Chloride Carbon Dioxide Anion Gap BUN Creatinine Estimated GFR BUN/Creatinine Ratio Glucose Lactic Acid Calcium Magnesium Total Bilirubin AST ALT Alkaline Phosphatase Troponin T C-Reactive Protein Total Protein Albumin Albumin/Globulin Ratio Urine Color Urine Turbidity Urine pH Ur Specific [place] Urine Protein Urine Glucose (UA) Urine Ketones Urine Blood Urine Nitrite Urine Bilirubin Urine Urobilinogen Ur Leukocyte Esterase Urine WBC (Auto) Urine RBC (Auto) U Epithel Cells (Auto) Urine Bacteria (Auto) Urine Mucus Urine Yeast (Budding) 01/25/18 01/25/18 01/25/18 22:00 22:00 22:00 WBC 12.6 H RBC 5.42 H Hgb 16.7 H D Hct 50.5 H D MCV 93 MCH 31 MCHC 33 RDW 14.4 Plt Count 183 Add Manual Diff Complete Total Counted 100 Seg Neuts % (Manual) 69.0 Band Neutrophils % 14.0 Lymphocytes % (Manual) 9.0 L Reactive Lymphs % (Man) 0 Monocytes % (Manual) 1.0 Eosinophils % (Manual) 0 Basophils % (Manual) 0 Metamyelocytes % 7.0 Myelocytes % 0 Promyelocytes % 0 Blast Cells % 0 Nucleated RBC % 1.0 H Seg Neutrophils # Man 8.7 H Band Neutrophils # 1.8 Lymphocytes # (Manual) 1.1 L Abs React Lymphs (Man) 0.0 Monocytes # (Manual) 0.1 Eosinophils # (Manual) 0.0 Basophils # (Manual) 0.0 Metamyelocytes # 0.9 Myelocytes # 0.0 Promyelocytes # 0.0 Blast Cells # 0.0 WBC Morphology Not Reportable Hypersegmented Neuts Not Reportable Hyposegmented Neuts Not Reportable Hypogranular Neuts Not Reportable Smudge Cells Not Reportable Toxic Granulation Not Reportable Toxic Vacuolation Not Reportable Dohle Bodies Not Reportable Pelger-Huet Anomaly Not Reportable Dimitri Rods Not Reportable Platelet Estimate Cons Clumped Platelets Not Reportable Plt Clumps, EDTA Not Reportable Large Platelets Not Reportable Giant Platelets Not Reportable Platelet Satelliting Not Reportable Plt Morphology Comment Not Reportable RBC Morphology Not Reportable Dimorphic RBCs Not Reportable Polychromasia Not Reportable Hypochromasia Not Reportable Poikilocytosis Not Reportable Anisocytosis 1+ Microcytosis Not Reportable Macrocytosis Not Reportable Spherocytes Not Reportable Pappenheimer Bodies Not Reportable Sickle Cells Not Reportable Target Cells Not Reportable Tear Drop Cells Not Reportable Ovalocytes Not Reportable Helmet Cells Not Reportable Min-[place] Bodies Not Reportable Tyler Rings Not Reportable [place] Cells Not Reportable Bite Cells Not Reportable Crenated Cell Not Reportable Elliptocytes Not Reportable Acanthocytes (Spur) Not Reportable Rouleaux Not Reportable Hemoglobin C Crystals Not Reportable Schistocytes Not Reportable Malaria parasites Not Reportable Leroy Bodies Not Reportable Hem Pathologist Commnt No PT INR APTT D-Dimer POC ABG pH POC ABG pCO2 POC ABG pO2 POC ABG HCO3 POC ABG Total CO2 POC ABG O2 Sat POC ABG Base Excess FiO2 Sodium 154 H Potassium 4.4 D Chloride 119.9 H Carbon Dioxide 16 L Anion Gap 23 BUN 24 H Creatinine 1.4 H Estimated GFR 49 BUN/Creatinine Ratio 17 Glucose 179 H Lactic Acid 5.60 H* Calcium 8.9 Magnesium 1.90 Total Bilirubin AST ALT Alkaline Phosphatase Troponin T C-Reactive Protein 1.90 H Total Protein Albumin Albumin/Globulin Ratio Urine Color Urine Turbidity Urine pH Ur Specific [place] Urine Protein Urine Glucose (UA) Urine Ketones Urine Blood Urine Nitrite Urine Bilirubin Urine Urobilinogen Ur Leukocyte Esterase Urine WBC (Auto) Urine RBC (Auto) U Epithel Cells (Auto) Urine Bacteria (Auto) Urine Mucus Urine Yeast (Budding) 01/25/18 01/26/18 01/26/18 23:41 04:56 05:00 WBC RBC Hgb 15.4 H Hct 47.1 H MCV MCH MCHC RDW Plt Count Add Manual Diff Total Counted Seg Neuts % (Manual) Band Neutrophils % Lymphocytes % (Manual) Reactive Lymphs % (Man) Monocytes % (Manual) Eosinophils % (Manual) Basophils % (Manual) Metamyelocytes % Myelocytes % Promyelocytes % Blast Cells % Nucleated RBC % Seg Neutrophils # Man Band Neutrophils # Lymphocytes # (Manual) Abs React Lymphs (Man) Monocytes # (Manual) Eosinophils # (Manual) Basophils # (Manual) Metamyelocytes # Myelocytes # Promyelocytes # Blast Cells # WBC Morphology Hypersegmented Neuts Hyposegmented Neuts Hypogranular Neuts Smudge Cells Toxic Granulation Toxic Vacuolation Dohle Bodies Pelger-Huet Anomaly Dimitri Rods Platelet Estimate Clumped Platelets Plt Clumps, EDTA Large Platelets Giant Platelets Platelet Satelliting Plt Morphology Comment RBC Morphology Dimorphic RBCs Polychromasia Hypochromasia Poikilocytosis Anisocytosis Microcytosis Macrocytosis Spherocytes Pappenheimer Bodies Sickle Cells Target Cells Tear Drop Cells Ovalocytes Helmet Cells Min-[place] Bodies Tyler Rings [place] Cells Bite Cells Crenated Cell Elliptocytes Acanthocytes (Spur) Rouleaux Hemoglobin C Crystals Schistocytes Malaria parasites Leroy Bodies Hem Pathologist Commnt PT INR APTT D-Dimer POC ABG pH 7.401 POC ABG pCO2 26.5 L POC ABG pO2 247 H POC ABG HCO3 16.5 POC ABG Total CO2 17 POC ABG O2 Sat 100 POC ABG Base Excess -8 FiO2 60 Sodium Potassium Chloride Carbon Dioxide Anion Gap BUN Creatinine Estimated GFR BUN/Creatinine Ratio Glucose Lactic Acid 4.40 H* Calcium Magnesium Total Bilirubin AST ALT Alkaline Phosphatase Troponin T C-Reactive Protein Total Protein Albumin Albumin/Globulin Ratio Urine Color Urine Turbidity Urine pH Ur Specific [place] Urine Protein Urine Glucose (UA) Urine Ketones Urine Blood Urine Nitrite Urine Bilirubin Urine Urobilinogen Ur Leukocyte Esterase Urine WBC (Auto) Urine RBC (Auto) U Epithel Cells (Auto) Urine Bacteria (Auto) Urine Mucus Urine Yeast (Budding) 01/26/18 01/26/18 01/26/18 05:00 05:00 23:26 WBC RBC Hgb 16.4 H Hct 50.1 H MCV MCH MCHC RDW Plt Count Add Manual Diff Total Counted Seg Neuts % (Manual) Band Neutrophils % Lymphocytes % (Manual) Reactive Lymphs % (Man) Monocytes % (Manual) Eosinophils % (Manual) Basophils % (Manual) Metamyelocytes % Myelocytes % Promyelocytes % Blast Cells % Nucleated RBC % Seg Neutrophils # Man Band Neutrophils # Lymphocytes # (Manual) Abs React Lymphs (Man) Monocytes # (Manual) Eosinophils # (Manual) Basophils # (Manual) Metamyelocytes # Myelocytes # Promyelocytes # Blast Cells # WBC Morphology Hypersegmented Neuts Hyposegmented Neuts Hypogranular Neuts Smudge Cells Toxic Granulation Toxic Vacuolation Dohle Bodies Pelger-Huet Anomaly Dimitri Rods Platelet Estimate Clumped Platelets Plt Clumps, EDTA Large Platelets Giant Platelets Platelet Satelliting Plt Morphology Comment RBC Morphology Dimorphic RBCs Polychromasia Hypochromasia Poikilocytosis Anisocytosis Microcytosis Macrocytosis Spherocytes Pappenheimer Bodies Sickle Cells Target Cells Tear Drop Cells Ovalocytes Helmet Cells Min-[place] Bodies Tyler Rings Kina Cells Bite Cells Crenated Cell Elliptocytes Acanthocytes (Spur) Rouleaux Hemoglobin C Crystals Schistocytes Malaria parasites Leroy Bodies Hem Pathologist Commnt PT INR APTT D-Dimer POC ABG pH POC ABG pCO2 POC ABG pO2 POC ABG HCO3 POC ABG Total CO2 POC ABG O2 Sat POC ABG Base Excess FiO2 Sodium 156 H Potassium 3.9 Chloride 119.5 H Carbon Dioxide 18 L Anion Gap 22 BUN 30 H Creatinine 2.3 H D Estimated GFR 27 BUN/Creatinine Ratio 13 Glucose 156 H Lactic Acid 7.30 H* Calcium 7.7 L Magnesium Total Bilirubin 0.40 AST 487 H ALT 226 H Alkaline Phosphatase 63 Troponin T C-Reactive Protein Total Protein 4.5 L Albumin 2.5 L Albumin/Globulin Ratio 1.3 Urine Color Urine Turbidity Urine pH Ur Specific [place] Urine Protein Urine Glucose (UA) Urine Ketones Urine Blood Urine Nitrite Urine Bilirubin Urine Urobilinogen Ur Leukocyte Esterase Urine WBC (Auto) Urine RBC (Auto) U Epithel Cells (Auto) Urine Bacteria (Auto) Urine Mucus Urine Yeast (Budding)
[2018-01-26] MEDS ORDERED: NACL 0.9% 1000 ML 1,000 ML ONE (09:45)
[2018-01-26] MEDS ORDERED: CLARITIN PO SCH (10:00)
[2018-01-26] MEDS ORDERED: NON-FORMULARY (Omeprazole [Omeprazole] 20 MG) PO SCH (10:00)
[2018-01-26] MEDS ORDERED: PROTONIX PO SCH (10:00)
[2018-01-26] MEDS ORDERED: ARICEPT PO SCH (10:00)
[2018-01-26] MEDS ORDERED: SENOKOT PO SCH (10:00)
--- NOTE | 2018-01-26 10:20 | Event Note ---
Date: 01/26/18 Patient coded twice this am with PEA. Came to see the patient, family at bedside, Pt has spontaneous circulation now. Discussed with Dr. Yeung and RN at bedside.
[2018-01-26] MEDS ORDERED: CALCIUM CHLORIDE IV ONE (11:02)
[2018-01-26] MEDS ORDERED: SODIUM BICARBONATE IV ONE (11:02)
[2018-01-26] MEDS ORDERED: ADRENALIN ONE (11:02)
--- NOTE | 2018-01-26 12:41 | Event Note ---
Date: 01/26/18 NOTE Multiple CODE BLUE had been called on the patient. Subsequently, her mother decided to made her DO NOT RESUSCITATE today. At 10 AM on 01/26/2018, I was notified by the nursing staff that she has a flat line on her pvc monitor. On examination: -Pupils fixed and dilated -No chest excursion -No breath or heart sounds heard on auscultation Patient was pronounced by me on 01/26/2018 at 10:05 AM Disposition: Patient transferred to the [facility]
[2018-01-26 13:21] VITALS: BP 52/29
--- NOTE | 2018-01-26 15:01 | Death Summary ---
Summary - Providers Consults: 01/25/18 14:21 Consult to Physician [CONS] Routine Comment: Consulting Provider: BERYL MURILLO Physician Instructions: Reason For Exam: respiratory failur 01/25/18 21:04 Consult to Physician [CONS] Urgent Comment: Consulting Provider: AMADA GORMAN Physician Instructions: Reason For Exam: gastrointestinal bleed Attending: ZULEMA SHANKAR MD - summary Date of admission: 01/25/18 14:18 Date of : 01/26/18
--- NOTE | 2018-01-26 17:12 | Consultation ---
CONSULTING PHYSICIAN: Girma Muhammad MD REASON FOR CONSULTATION: Acute hypoxemic respiratory failure, status post cardiopulmonary arrest. CHIEF COMPLAINT AND HISTORY OF PRESENT ILLNESS: The patient is a 47-year-old -Ivorian female with past medical history significant for diagnosis of Down syndrome and according to the family members, no other significant medical history except for gastroesophageal reflux disease and psychiatric disorders, who was at her daycare today. She woke up according to the caregiver in a good mood today, was homing around the house, had no problems, went to the center. Reportedly at the Center, she walked to the bathroom and collapsed. They reportedly stated that they were waiting about 10 minutes for her to come back from the restroom. By the time they finally went in and got her, they did start CPR at [facility]. Emergency Medical Services were called. She was intubated and ACLS protocol was started. She did receive CPR and 3 rounds of epinephrine including bicarbonate for quinn arrest pulseless electrical activity when they saw her. She was brought into the emergency care unit and intubated, and I believe the intubation was continued. She was finally transferred up to the Intensive Care Unit where I stopped by to see her. In the Emergency Room, amongst other things, she was found to be hypotensive. She is significantly acidotic also. She had some hyperkalemia that was treated. When I stopped by to see her, she was on the mechanical ventilator. She was essentially riding the sed rate of 20 with a tidal volume of 450 and a PEEP of 8. She was on 80% FiO2 at that time. I do not have any history of vomiting or overt aspiration. She does have the history of gastroesophageal reflux disease; however, no history of GI bleeding. She has never been intubated according to the caregiver in the room. She is a nonsmoker. This is really as much of the history of presentation as I have. PAST MEDICAL HISTORY: Down syndrome, gastroesophageal reflux disease, and history of hypertension. PAST SURGICAL HISTORY: She denied. MEDICATIONS: She was on at the time I stopped by to see were reviewed. Pertinent medications included epinephrine drip going at 8 mcg per minute, Galileo-Synephrine going at 18 mcg per minute, albuterol was scheduled p.r.n., Klonopin 0.5 mg p.o. b.i.d., Aricept 10 mg p.o. daily, loratadine 10 mg p.o. daily, Namenda 10 mg p.o. b.i.d., Protonix 20 mg p.o. daily, Pravachol 40 mg p.o. at bedtime, Seroquel 300 mg p.o. at bedtime. ALLERGIES: No known drug allergies. DIET: A short statured -Ivorian female with facies of mental retardation, acute weight loss or gain, history was denied by the family. REVIEW OF SYSTEMS: Unobtainable secondary to patient's medical and mental condition. Since she has been here, no gross hematuria, no hematemesis. She just had an episode of hematochezia. Maroon-colored stools. No seizures have been reported. PHYSICAL EXAMINATION: VITAL SIGNS: At presentation in the Emergency Room revealed vital signs, she was hypothermic, temperature 95.1 degrees Fahrenheit with a pulse of 82, initial respiratory rate that I see was 21 with a blood pressure of 102/71 at presentation and O2 sats 100%, inspired oxygen concentration was not recorded. GENERAL: She is short statured -Ivorian female. Her facies and cephalic shape is consistent with mental retardation on the mechanical ventilator without significant patient ventilator dyssynchrony. HEAD, EYES, EARS, NOSE AND THROAT: She is anicteric. No conjunctival erythema. Endotracheal tube is in place, taped at the lips around 19 cm. No gross thyromegaly. She has a right IJ, central line in place. No significant bleeding or exudation around this stoma. NECK: Grossly, no palpable lymph nodes in the supraclavicular or submandibular lymph node chains. LUNGS: Auscultation of both lung guadarrama, scant rhonchi, no wheezing bilaterally. HEART: Heart sounds 1 and 2 are heard. Regular tachycardia at the time of my evaluation, without rubs or murmurs. The precordial heave was strong. ABDOMEN: Distended, soft, does not appear tender. Bowel sounds are positive, but hypoactive. No palpable hepatosplenomegaly. EXTREMITIES: Without overt digital clubbing, cyanosis, or pedal edema. Dorsalis pedis pulses are palpable bilaterally. NEUROLOGIC: Pupils were equal, round, but only about 2 mm, very sluggishly reactive to light. Extraocular muscle movements could not be assessed. She had some spontaneous movement to her upper and lower extremities. The skin was of poor turgor without cellulitis or rash. LABORATORY DATA: From my review are as follows: White cell count 5900, hemoglobin 11.6, hematocrit 34.7, platelet count 173. No manual differential. D-dimer elevated at 6524. INR was 1.44. Arterial blood gas showed a pH of 7.26, pCO2 of 34, pO2 of 55, that was on 100% FiO2 and the above-mentioned vent settings. Serum sodium at presentation was 152 with a potassium of 6.5, chloride of 105, bicarbonate of 19, BUN of 12, creatinine of 1.1 and glucose of 224, AST 81, ALT 74, albumin 2.9. Liver function tests otherwise within normal limits. Total bilirubin within normal limits. Urinalysis showed negative for nitrites and leukocyte esterase. There were 47% white cells per high power field, 2+ bacteria. She was spilling some glucose in the urine. Two sets of blood cultures have been sent. Chest x-ray has been reviewed. Essentially it shows an endotracheal tube in place with the tip apparently in the right main stem bronchus with complete atelectasis of the left lung, a suggestion of gross cardiomegaly, mild hypoventilation with vascular crowding in the right lung. The gastric bubble was significantly distended. No gross pneumothorax, no gross bony fractures. Repeat chest x-ray after pulling the ET tube to 19 cm shows the ET tube about 5 cm above the jewell with complete reexpansion of the left lung. ASSESSMENT AND PLAN: 1. Acute hypoxemic respiratory failure, on mechanical ventilator support. 2. Status post cardiopulmonary arrest. 3. Right main intubation with complete atelectasis of the left lung field, possible baseline cardiomyopathy. 4. History of gastroesophageal reflux disease. 5. Acute gastrointestinal bleed either significant upper GI bleeding or lower GI bleeding with the maroon-colored blood. 6. Coagulopathy. 7. Metabolic acidosis. 8. Hyperkalemia. 9. Hyponatremia. 10. Hyperglycemia. 11. Elevated serum transaminases. 12. Possible urinary tract infection. PLAN: 1. NG tube is going to be placed right away to low intermittent suction. Stool has been sent for occult blood testing. A stat CBC will be sent including stat repeat basic metabolic panel. I will get a lactic acid level as well as a CRP level and consider empiric antibiotics in this lady with sepsis syndrome, severe sepsis on vasopressors. That is the reason. The fear that this may be due to an acute GI bleed, a GI consult is going to be placed. She is going to be given 80 mg bolus of Protonix IV and then placed on a Protonix drip at 8 mg per hour. Gentle volume hydration will also be continued. I will go ahead and complete electrolytes cream ordering magnesium and phosphorus level. We certainly need to repeat serum potassium level, it was corrected in the ER, but no repeat studies yet. We will continue to wean oxygen to keep sats greater than or equal to about 92%. Ventilator-associated pneumonia bundle has been addressed. We will hold obviously on spontaneous breathing trials until we can get her oxygenation to a reasonable level and she is clinically ready. She has Flu and pneumonia vaccination will be addressed per protocol. SCDs will be the GI and DVT prophylaxis acutely until we are sure she is not bleeding significantly. Thank you very much for the consult Dr. Muhammad. We will follow along and make further recommendations as picture progresses/becomes clearer. I have discussed the care plan with her caregivers. At this point, I have spent about 45-50 minutes of critical care time without overlap excluding any procedural time that may be necessary. She is critically ill on life-sustaining interventions including mechanical ventilator support and vasopressors at high risk for further decompensation including from compromise of the cardiovascular, respiratory, and gastrointestinal. JOB# [id number] CARA/JENNA
--- NOTE | 2018-01-26 20:46 | Consultation ---
REFERRING PHYSICIAN: Jon Yeung MD INDICATION: Rectal bleeding. HISTORY OF PRESENT ILLNESS: The patient is a 47-year-old female with history of hypertension, Down syndrome, mitral regurg. The patient was in usual state of health and subsequently was found down. The patient subsequently was brought to the Emergency Room with a complaint. The patient was noted to be in cardiogenic shock and respiratory failure as well as acidosis. She was coded in the Emergency Room, subsequently brought back and felt to be anoxic brain injury. The patient although had some rectal bleeding during these episodes and GI is consulted to aid in management. History is per family and chart. No obvious history of GI bleed in past. No NSAIDs or aspirin. Denies any other specific complaints. PAST MEDICAL HISTORY: 1. Hypertension. 2. Down syndrome. MEDICATIONS: See chart. ALLERGIES: No known drug allergies. SOCIAL HISTORY: Denies alcohol, tobacco or drug abuse. FAMILY HISTORY: Negative for colon cancer. REVIEW OF SYSTEMS: GENERAL: Per family and chart. General weakness. HEENT: No visual complaints. PULMONARY: No history of previous shortness of breath, cough or chest pain. GASTROINTESTINAL: Reported rectal bleeding. All points of 13-point review of systems otherwise negative. PHYSICAL EXAMINATION: VITAL SIGNS: Temperature of 97.7, pulse 109, respirations 20, blood pressure 80/50. GENERAL: Intubated and sedated, in no acute distress.. HEENT: Pupils equal, round, reactive. PULMONARY: Rhonchi. CARDIOVASCULAR: Regular rhythm. ABDOMEN: Soft. SKIN: No rashes. LABORATORY DATA: White count of 12.6, hemoglobin and hematocrit of 16.7 and 50.5, and platelet count of 183. Chem-7: Sodium is 154, potassium 4.4, chloride 120, CO2 of 16, BUN and creatinine of 24 and 1.4 with lactic acid of 4.4. LFTs with AST and ALT of 81 and 74. Total bilirubin within normal limits. ASSESSMENT AND PLAN: The patient is a 47-year-old female with medical history as noted above, who now presents found down and had to be coded and intubated. The patient with reported rectal bleeding. My concern is that the patient is very unstable and is unsure as to whether or not she will live over the next 24 hours. Conservative medical approach. PLAN: 1. PPI IV drip. 2. Follow H and H. 3. Other medical issues per primary team. 4. No plans to scope at this time. 5. We will follow for now and if becomes stable and continue bleeding, consider endoscopic evaluation. JOB# [id number] CAB/NTS
== END 2018-01-26 15:35 | DRG 208 ==
LOC: ED 12:25 → CC1 14:18
PROVIDERS: ADMIT Internal Medicine; ATTEND Internal Medicine
PROC: 02HV33Z Insertion of Infusion Device into Superior Vena Cava, Percutaneous Approach (ICD-10-PCS; principal; 2018-01-25)
PROC: 5A1935Z Respiratory Ventilation, Less than 24 Consecutive Hours (ICD-10-PCS; 2018-01-25)
PROC: 5A12012 Performance of Cardiac Output, Single, Manual (ICD-10-PCS; 2018-01-25)
PROC: 4A033R1 Measurement of Arterial Saturation, Peripheral, Percutaneous Approach (ICD-10-PCS; 2018-01-25)
PROC: 0BH17EZ Insertion of Endotracheal Airway into Trachea, Via Natural or Artificial Opening (ICD-10-PCS; 2018-01-25)
DX: J96.01 Acute respiratory failure with hypoxia (principal); I46.9 Cardiac arrest, cause unspecified; F33.9 Major depressive disorder, recurrent, unspecified; I50.9 Heart failure, unspecified; I11.0 Hypertensive heart disease with heart failure; R62.50 Unspecified lack of expected normal physiological development in childhood; I34.0 Nonrheumatic mitral (valve) insufficiency; E87.2 Acidosis; G93.1 Anoxic brain damage, not elsewhere classified; K21.9 Gastro-esophageal reflux disease without esophagitis; E87.5 Hyperkalemia; K92.2 Gastrointestinal hemorrhage, unspecified; E87.1 Hypo-osmolality and hyponatremia; D68.9 Coagulation defect, unspecified; E16.2 Hypoglycemia, unspecified; Q90.9 Down syndrome, unspecified; Z79.899 Other long term (current) drug therapy; Z82.49 Family history of ischemic heart disease and other diseases of the circulatory system; G93.40 Encephalopathy, unspecified
CPT/HCPCS: 36415; 36600; 71045; 80048; 80053; 81001; 82140; 82270; 82803; 82962; 83735; 84484; 85007; 85014; 85018; 85025; 85027; 85379; 85610; 85730; 86140; 87040; 87070; 87205; 93005; 93010; 94002; 94003; 94640; 96374; A9270-GY; C9113; J0171; J7030; J7050; J7070